=== PATIENT | female | born 1965 | race African-American/Black ===

== ENCOUNTER 2019-12-05 16:34 | Emergency (ER) | payer SELFPAY ==
[~2019-12-05] VITALS: Ht 170.2 cm; Wt 94.3 kg
[2019-12-05] MEDS ORDERED: ONDANSETRON HCL INJ 2MG/ML 2ML 2 MG/ML VIAL IV STA ×2 (17:15→19:16)
[2019-12-05] MEDS ORDERED: SODIUM CHLORIDE FLUSH 10 ML SYR INJ PRN (17:15)
[2019-12-05] MEDS ORDERED: KETOROLAC TROMETHAMINE 30 MG/ML VIAL IV STA (17:15)
--- NOTE | 2019-12-05 17:21 | NUR ---
went in room after md done to start iv and labs as ordered, explained to pt plan of care, pt then picks up her phone and states she needs "to make some calls," pt begins personal conversation, nurse excused herself and will be back to give pt privacy. updated md.
[2019-12-05] MEDS ORDERED: SODIUM CHLORIDE 0.9% 50ML 50 ML ONE (17:25)
[2019-12-05] MEDS ORDERED: IOPAMIDOL 370 MG/ML 200 ML INFUS..BTL INJ ONE (17:25)
--- OUTSIDE RECORDS SUMMARY | 2019-12-05 18:06 | XMS REPORT | Continuity of Care Document ---
Author Author [facility] Organization [facility] Address [facility] [address] Rivera [address] [place] [phone] Phone Unavailable Care Team Providers Care Folded Cloth Taper Name Role Phone Unavailable Unavailable Payers Payer Name Policy Type Policy Number Effective Date Expiration Date S ource Problems This patient has no known problems. Allergies, Adverse Reactions, Alerts Allergy Name Allergy Type Status Severity Reaction(s) Onset Date Inacti ve Date Treating Clinician Comments Source No Known Allergies DA Active U 2018-11-28 00:00:00 [facility] No Known Allergies DA Active U 2015-05-03 00:00:00 [facility] Medications This patient has no known medications. Procedures This patient has no known procedures. Results Test Description Test Time Test Comments Results Result Comments Source UTERUS W/WO TUBE/OVA. PROLAPSE 2018-11-28 15:16:00 DATE: 11/28/18 [facility] PAGE 1 RUN TIME: 1602 Specimen Inquiry RUN USER: INTERFACE PATIENT: JACOB MARTINEZ LOC: [place]OR #: [id number] AGE/SX: 53/F ROOM: [facility] RE11/24/18REG DR: Olegario Celis DO : 65 BED: A DIS: 11/27/18 STATUS: DIS IN TLOC: SPEC #: [id number] RECD: 11/27/18 STATUS: JOSSESanta CHARLIE #: [id number] LIZETT: 11/24/18- [facility] DR: Olegario Celis DO ENTERED: 11/27/18 SP TYPE: UTERUSPRO OTHR DR: Yuri Alston MD, Guillermo MDORDERED: LEVEL IV CODES: [id number] - UTERUS, NOS COPIES TO: Yuri Alston MD [address] [facility] [address] [place] [address] [email or web address] Olegario Celis DO [address] [facility] [address] [place] [address] Shawn Desouza MD [address] 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 (no atypia, increased mitotic rate or tumor cell necrosis identified) - leiomyomas uterine serosa - benign fibrous adhesions bilateral fallopian tubes - previously ligated fallopian tubes with benign CONTINUED ON NEXT PAGE RUN DATE: 11/28/18 [facility] PAGE 2 RUN TIME: 1602 Specimen Inquiry RUN USER: INTERFACE JOSE Gama #: [id number] PATIENT: JACOB MARTINEZ #[id number] (Continued) FINAL DIAGNOSIS (Continued) paratubal cysts right ovary - no significant pathologic alteration left ovary - benign fibroma, 4.8 cm CPT code(s): 79235 [facility] 11/28/18 GROSS DESCRIPTION ANATOMIC SOURCE OF TISSUE (per Requisition): Uterus, cervix, bilateral tubes and ovaries The specimen is received in formalin in a container labeled with the patient's name and designated "uterus, cervix, bilateral tubes and ovaries". The specimen consists of a 350 gm, 13.5 x 10.0 x 9.5 cm previously incised uterus with an attached cervix, previously ligated fimbriated fallopian tubes (right 5.5 cm in length and left 4.5 cm in length), and ovaries (right 4.0 cm and left 6.0 cm). The uterine serosa is de jesus-pink and nodular with a few possible adhesions. The 3.5 cm ectocervix displays a central 1 cm slit-like os. The endometrium is de jesus-red, hemorrhagic and slightly nodular with a thickness measuring up to 0.1 cm. The myometrium is extensively trabeculated with a wall thickness measuring up to 5.0 cm. There are multiple hemorrhagic cysts, 0.1 to 0.2 cm. Additionally, within the myometrium there are multiple well-circumscribed nodules, 0.5 to 5.5 cm. The cut surfaces are predominantly de jesus and whorled; however, the larger nodule d isplays focal areas of hemorrhage and multiple cyst-like spaces. The fallopian tubes are pink-purple and hyperemic. The lumens are slightly dilated. The ovarian stroma is de jesus, nodular, and firm with multiple corpora albicans. The left ovary displays a 4.8 cm well-circumscribed nodule. The cut surfaces are de jesus and whorled with areas of calcification. There are no areas of hemorrhage or necrosis. Section code: A1 - cervix, A2 - anterior endomyometrium, A3 - posterior endomyometrium, A4 - additional endometrium and possible serosal adhesions, A5 and A6 - pharmacy sales representative sections of large nodule, A7 - smaller nodules, A8 - pharmacy sales representative sections of right adnexa, A9 - pharmacy sales representative sections of left adnexa. amish 11/27/18 @ 1110 Signed Bree Canales MD 11/28/18 1516 END OF REPORT - CT ABD PELVIS W/CONT 2018-11-28 14:20:00 Katt ent Name: JACOB MARTINEZ Unit No: [id number] EXAMS: CPT CODE: [id number] CT ABD PELVIS W/CONT 29649 CT OF THE ABDOMEN AND PELVIS PERFORMED November 28, 2018 1410 hours . CLINICAL HISTORY: Status post hysterectomy and BSO 11/24/2018 . Presents now with postop fever COMPARISON: November 24, 2018 . TECHNIQUE: 5 mm helical images through the abdomen and pelvis with IV, oral and rectal contrast. One or more of the following dose techniques were utilized; automated exposure control, adjustment of the mA and/or kV according to patient size, and/or utilization of iterative reconstruction technique. DLP: 822 mGy-cm. DISCUSSION: Lung bases are clear. Great vessels and osseous structures are within normal limits. The liver, gallbladder, biliary tree, spleen, pancreas, bilateral adrenals, and bilateral kidneys are within normal limits. No adenopathy or free fluid is seen in the abdomen or pelvis. Visualized opacified portion of bowel is within normal limits. Appendix is not definitively seen. No secondary signs of appendicitis. The uterus has been surgically removed as have the ovaries and previously described pelvic mass. No focal fluid collection or abscess is seen. The visualized distal ureters and urinary bladder are within normal limits. IMPRESSION: 1. Normal postop CT of the abdomen and pelvis. No focal fluid collection or abscess is seen. at 1420 Reported and signed by: Kamilah Barton MD [facility] NAME: JACOB MARTINEZ Radiology Department PHYS: [email or web address] - Gregorio Woodward MD [address] : 1965 AGE: 53 SEX: F [place], [place] [address] LOC: TIMOTEO PHONE #: [phone] EXAM DATE: 11/28/2018 STATUS: REG ER FAX #: [phone] RAD NO: Page 1 Signed Report 1 Patient Name: JACOB MARTINEZ Unit No: [id number] EXAMS: CPT CODE: [id number] CT ABD PELVIS W/CONT 04528 <Continued> CC: Gregorio Woodward MD Technologist: Olga Humphrey, RT, CT CTDI: 11.65 DLP: 821.71 Trnscrbd D/ (2400) [facility]OB [facility] Radiology Department PHYS: Gregorio Luna MD [address] : 1965 AGE: 53 SEX: F [place] [address] LOC: NemoERS PHONE #: [phone] EXAM DATE: 11/28/2018 STATUS: REG ER FAX #: [phone] RAD NO: Page 2 Signed Report 1 Patient Name: JACOB MARTINEZ Unit No: [id number] EXAMS: CPT CODE: [id number] CT ABD PELVIS W/CONT 44802 <Continued> Orig Print D/T: S: 11/28/2018 (2742) [facility] NAME: MYESHA MARTINEZTORREY Radiology Department PHYS: Gregorio Luna MD [address] : 1965 AGE: 53 SEX: F [place] [address] LOC: Elyse.ERS PHONE #: [phone] EXAM DATE: 11/28/2018 STATUS: REG ER FAX #: [phone] RAD NO: Page 3 Signed Report 1 CBC W/AUTO DIFF 2018-11-28 13:14:00 Test Item WHITE BLOOD CELL (test code = WBC) 4.4 K/mm3 6.6-12.1 L Results verified by repeat analysis RED BLOOD CELL (test code = RBC) 4.41 M/mm3 3.45-5.01 N HEMOGLOBIN (test code = HGB) 13.2 g/dL 10.7-13.9 N HEMATOCRIT (test code = HCT) 39.6 % 32.1-42.1 N MEAN CELL VOLUME (test code = MCV) 90 fL 84.1-94.8 N MEAN CELL HGB (test code = MCH) 29.9 pg 27-35 N MEAN CELL HGB CONCETRATION (test code = MCHC) 33.3 gm/dL 32.2-34. 1 N RED CELL DISTRIBUTION WIDTH (test code = RDW) 12.5 % 12.4-16. 5 N PLATELET COUNT (test code = PLT) 289 K/mm3 133-385 N IMMATURE PLATELET FRACTION (test code = IPF) 0.0 % 0.0-10.8 N MEAN PLATELET VOLUME (test code = MPV) 11.4 fl 9.1-12.7 N NEUTROPHIL % (test code = NT%) 54.1 % 56.5-79.4 L LYMPHOCYTE % (test code = LY%) 33.9 % 14.3-34.3 N MONOCYTE % (test code = MO%) 9.8 % 5.1-10.4 N EOSINOPHIL % (test code = EO%) 1.1 % 0.1-3.0 N BASOPHIL % (test code = BA%) 0.9 % 0.1-1.0 N NEUTROPHIL # (test code = NT#) 2.4 K/mm3 LYMPHOCYTE # (test code = LY#) 1.5 K/mm3 MONOCYTE # (test code = MO#) 0.4 K/mm3 EOSINOPHIL # (test code = EO#) 0.05 K/mm3 BASOPHIL # (test code = BA#) 0.0 K/mm3 RBC MORPHOLOGY REQUIRED (test code = RBCM) NORMAL NORMAL PLATELET MORPHOLOGY REQUIRED (test code = PLTMR) NORMAL JOSE L CHEMISTRY 7 [id number] 13:12:00* Test Item Value Reference Range Interpretation Comments SODIUM (test code = NA) 141 mEq/L 135-145 N POTASSIUM (test code = K) 3.4 mEq/L 3.5-5.0 L CHLORIDE (test code = CL) 105 mEq/L 100-115 N CARBON DIOXIDE (test code = CO2) 27 mEq/L 22-31 N ANION GAP (test code = GAP) 12.00 10-20 N GLUCOSE (test code = GLU) 137 mg/dL 65-110 H BLOOD UREA NITROGEN (test code = BUN) 8 mg/dL 7-18 N GLOMERULAR FILTRATION RATE (test code = GFR) 65 ml/min >60 N CREATININE (test code = CREAT) 1.0 mg/dL 0.5-1.0 N CALCIUM (test code = CA) 8.4 mg/dL 8.4-10.2 N UA RFLX MICR CULT IF [id number] 13:02:00* Test Item Value Reference Range Interpretation Comments UA COLOR (test code = COLU) YELLOW YELLOW UA APPEARANCE (test code = APPU) Slightly-Cloudy CLEAR UA GLUCOSE DIPSTICK (test code = DGLUU) NEGATIVE NEG UA BILIRUBIN DIPSTICK (test code = BILU) NEGATIVE NEG UA KETONE DIPSTICK (test code = KETU) 1+ NEG A UA SPECIFIC GRAVITY (test code = SGU) 1.024 1.001-1.035 N UA BLOOD DIPSTICK (test code = [place]) 1+ NEG A UA PH DIPSTICK (test code = LARS) 6.0 5-9 UA PROTEIN DIPSTICK (test code = PROU) NEGATIVE NEG UA UROBILINIOGEN DIPSTICK (test code = URO) 2.0 mg/dL NEG UA NITRITE DIPSTICK (test code = LEONARDA) NEG NEG UA LEUKOCYTE ESTERASE DIPSTICK (test code = LEUU) 2+ NEG A UA WBC (test code = WBCU) 31-40 #/hpf NONE SEEN A UA RBC (test code = RBCU) 3-5 #/hpf NONE SEEN A UA EPITHELIAL CELLS (test code = EPIU) FEW #/HPF RARE-FEW UA MUCUS (test code = MUCU) RARE NONE SEEN Indication for culture: Suprapubic PainCHEMISTRY 7 [id number] 16:16:00* Test Item Value Reference Range Interpretation Comments SODIUM (test code = NA) 140 mEq/L 135-145 N POTASSIUM (test code = K) 3.8 mEq/L 3.5-5.0 N CHLORIDE (test code = CL) 105 mEq/L 100-115 N CARBON DIOXIDE (test code = CO2) 29 mEq/L 22-31 N ANION GAP (test code = GAP) 10.20 10-20 N GLUCOSE (test code = GLU) 107 mg/dL 65-110 N BLOOD UREA NITROGEN (test code = BUN) 6 mg/dL 7-18 L GLOMERULAR FILTRATION RATE (test code = GFR) 65 ml/min >60 N CREATININE (test code = CREAT) 1.0 mg/dL 0.5-1.0 N CALCIUM (test code = CA) 8.3 mg/dL 8.4-10.2 L CBC W/AUTO [id number] 15:40:00* Test Item Value Reference Range Interpretation Comments WHITE BLOOD CELL (test code = WBC) 7.6 K/mm3 6.6-12.1 RED BLOOD CELL (test code = RBC) 4.16 M/mm3 3.45-5.01 N HEMOGLOBIN (test code = HGB) 12.4 g/dL 10.7-13.9 N HEMATOCRIT (test code = HCT) 37.5 % 32.1-42.1 N MEAN CELL VOLUME (test code = MCV) 90 fL 84.1-94.8 N MEAN CELL HGB (test code = MCH) 29.8 pg 27-35 N MEAN CELL HGB CONCETRATION (test code = MCHC) 33.1 gm/dL 32.2-34. 1 N RED CELL DISTRIBUTION WIDTH (test code = RDW) 12.5 % 12.4-16. 5 N PLATELET COUNT (test code = PLT) 272 K/mm3 133-385 N IMMATURE PLATELET FRACTION (test code = IPF) 0.0 % 0.0-10.8 N MEAN PLATELET VOLUME (test code = MPV) 11.5 fl 9.1-12.7 N NEUTROPHIL % (test code = NT%) 71.6 % 56.5-79.4 N LYMPHOCYTE % (test code = LY%) 19.3 % 14.3-34.3 N MONOCYTE % (test code = MO%) 8.9 % 5.1-10.4 N EOSINOPHIL % (test code = EO%) 0.0 % 0.1-3.0 L BASOPHIL % (test code = BA%) 0.1 % 0.1-1.0 N NEUTROPHIL # (test code = NT#) 5.4 K/mm3 LYMPHOCYTE # (test code = LY#) 1.5 K/mm3 MONOCYTE # (test code = MO#) 0.7 K/mm3 EOSINOPHIL # (test code = EO#) 0 K/mm3 BASOPHIL # (test code = BA#) 0.0 K/mm3 RBC MORPHOLOGY REQUIRED (test code = RBCM) NORMAL NORMAL PLATELET MORPHOLOGY REQUIRED (test code = PLTMR) NORMAL JOSE L HGB [id number] 05:46:00* Test Item Value Reference Range Interpretation Comments HEMOGLOBIN (test code = HGB) 13.0 g/dL 10.7-13.9 N HEMATOCRIT (test code = HCT) 39.9 % 32.1-42.1 N - US TRANSVAGINAL [id number] 14:28:00 Patient Name: JACOB MARTINEZ Unit No: [id number] Report Has Been Amended EXAMS: CPT CODE: [id number] US TRANSVAGINAL W/PELVIS 92376 Addendum - 11/24/2018 SIGNED 11/24/2018 ADDENDUM: [id number] US/TRANPL Addendum: Additional ultrasound imaging was performed 11/24/2018 at [address] for assessment of the ovaries. In the left adnexa just superior to the uterus is an inhomogeneous mass measuring approximately 3.7 x 6.0 x 3.7 cm. Echogenicity is similar in appearance to the uterine myometrium. Minimal flow is present. This does appear separate from the uterus. This corresponds to the lesion seen on CT. Differential considerations include ovarian (hemorrhagic cyst, neoplasm or torsion) versus less likely pedunculated degenerating fibroid. The right ovary was not visualized due to bowel gas and patient discomfort. These findings were discussed with Dr. Desouza approximately 2:00 PM 11/24/2018 at 1422 Reported and signed by: Kamilah Barton MD Transcribed: 12/2018 (6499) t.SDR.NMG Report TRANSABDOMINAL AND TRANSVAGINAL PELVIC UL TRASOUND INDICATION: Heavy vaginal bleeding. TECHNIQUE: Transabdominal and transvaginal pelvic ultrasound was performed with mariee scale and Doppler im ages. COMPARISONS: None FINDINGS: TRANSABDOMINAL PELVIC ULTRASOUND: The uterus measures 11.5 x 9.6 x 7.8 cm. The endometrium is not well visua lized. There is a 7.8 x 6.4 x 7.1 cm posterior uterine body transmural uter ine fibroid. Neither ovary is visualized due to shadowing from bowel. Th e urinary bladder appears normal as visualized. There is no intra-abdominal free fluid. The [facility] NAME: MYESHA MARTINEZ Radiology Department PHYS: Abhay Arteaga [address] : 1965 AGE: 53 SE X: F [place], [place] [address] LOC: F.2644 A PHONE #: [phone] EXAM DATE: 11/23/2018 STATUS: ADM IN FAX #: [phone] RAD NO: Page 1 Signed Report (CONTINUED) Patient Name: JACOB MARTINEZ Unit No: [id number] Report Has Been Am ended EXAMS: CPT CODE: [id number] US TRANSVAGINAL W/PELVIS 64904 < Continued> Transvaginal pelvic ultrasound was performed in order to better visualize the pelvic structures. TRANSVAGINAL PELVIC ULTRASOUND: The uterus measures 13.4 x 7.5 x 7.5 cm. The endometrial stripe measures 1.1 cm thick. There is a small amount of complex fluid in the endometrial canal. There is a 2.6 x 2.5 x 2.8 cm submucosal right uterine body fibroid. There is a 6.7 x 6.6 x 7.6 cm transmural posterior uterine body fibroid. The ovaries were not visualized due to shadowing from bowel. IMPRESSION: 1. The endometrial stripe measures 1.1 cm thick. There is a small amount of complex fluid in the endometrial cavity. 2. There is a 2.6 x 2.5 x 2.8 cm submucosal right uterine body fibroid. 3. There is a 6.7 x 6.6 x 7.6 cm transmural posterior uterine body fibroid. 4. The ovaries were not visualized due to shadowing from bowel. at 2214 Reported and signed by: Frankie Poole DO CC: Abhay William MD Technologist: Danielle Payne RDMS Probe: [id number] Trnscrbd D/ (2214) [id number] Orig Print D/T: S: 11/23/2018 (2217) [facility] NAME: JACOB MARTINEZ Radiology Department PHYS: Abhay Skinner : 1965 AGE: 53 SEX: F [place], [place] [address] LOC: F.2644 A PHONE #: [phone] EXAM DATE: 11/23/2018 STATUS: ADM IN FAX #: [phone] RAD NO: Page 2 Signed Report Patient Name: JACOB MARTINEZ Unit No: [id number] Report Has Been Amended EXAMS: CPT CODE: [id number] US TRANSVAGINAL W/PELVIS 26672 <Continued> [facility] NAME: JACOB MARTINEZ Radiology Department PHYS: Abhay Skinner [address] : 1965 AGE: 53 SEX: F [place], [place] [address] LOC: F.2644 A PHONE #: [phone] EXAM DATE: 11/23/2018 STATUS: ADM IN FAX #: [phone] RAD NO: Page 3 Signed Report - US PELVIS [id number] 14:28:00 Patient Name: JACOB MARTINEZ Unit No: [id number] Report Has Been Amended EXAMS: CPT CODE: [id number] US PELVIS COMPLETE 13560 Addendum - 11/24/2018 SIGNED 11/24/2018 ADDENDUM: [id number] US/USPELNOBC Addendum: Additional ultrasound imaging was performed 11/24/2018 at [address] for assessment of the ovaries. In the left adnexa just superior to the uterus is an inhomogeneous mass measuring approximately 3.7 x 6.0 x 3.7 cm. Echogenicity is similar in appearance to the uterine myometrium. Minimal flow is present. This does appear separate from the uterus. This corresponds to the lesion seen on CT. Differential considerations include ovarian (hemorrhagic cy st, neoplasm or torsion) versus less likely pedunculated degenerating fibroid. The right ovary was not visualized due to bowel gas and patient discomfort. These findings were discussed with Dr. Desouza approximately 2:00 PM 11/24/2018 at 1423 Reported and signed by: Kamilah Barton MD Transcribed: 11/24/2018 (7617) t.SDR.NMG Report TRANSABDOMINAL AND TRANSVAGINAL PELVIC ULTRASOUND INDICATION: Heavy vaginal bleeding. TECHNIQUE: Transabdomin al and transvaginal pelvic ultrasound was performed with mariee scale and Doppler images. COMPARISONS: None FINDINGS: TRANSABDOMINAL PELVIC ULTRASOUN D: The uterus measures 11.5 x 9.6 x 7.8 cm. The endometrium is not well vi sualized. There is a 7.8 x 6.4 x 7.1 cm posterior uterine body transmural u terine fibroid. Neither ovary is visualized due to shadowing from bowel. The urinary bladder appears normal as visualized. There is no intra-abdomin al free fluid. [facility] NAME: ANNA MARTINEZ Radiology Department PHYS: Abhay Alan [address] : 1965 AGE: 53 SEX: F [place], [place] [address] LOC: F.2644 A PHONE #: [phone] EXAM DATE: 11/23/2018 STATUS: ADM IN FAX #: [phone] RAD NO: Page 1 Signed Report (CONTINUED) Patient Name: JACOB MARTINEZ Unit No: [id number] Report Has Been Amended EXAMS: CPT CODE: [id number] US PELVIS COMPLETE 03608 < Continued> Transvaginal pelvic ultrasound was performed in order to better visualize the pelvic structures. TRANSVAGINAL PELVIC ULTRASOUND: The uterus measures 13.4 x 7.5 x 7.5 cm. The endometrial stripe measures 1.1 cm thick. There is a small amount of complex fluid in the endometrial canal. There is a 2.6 x 2.5 x 2.8 cm submucosal right uterine body fibroid. There is a 6.7 x 6.6 x 7.6 cm transmural posterior uterine body fibroid. The ovaries were not visualized due to shadowing from bowel. IMPRESSION: 1. The endometrial stripe measures 1.1 cm thick. There is a small amount of complex fluid in the endometrial cavity. 2. There is a 2.6 x 2.5 x 2.8 cm submucosal right uterine body fibroid. 3. There is a 6.7 x 6.6 x 7.6 cm transmural posterior uterine body fibroid. 4. The ovaries were not visualized due to shadowing from bowel. at 2214 Reported and signed by: Frankie Poole DO CC: Abhay William MD Technologist: Danielle Payne RDMS Probe: Trnscrbd D/ (6044) t.TERRIER.JB33 Orig Print D/T: S: 11/23/2018 (6377) [facility] NAME: JACOB MARTINEZ Radiology Department PHYS: Abhay Skinner [address] : 1965 AGE: 53 SEX: F [place] [address] LOC: F.2644 A PHONE #: [phone] EXAM DATE: 11/23/2018 STATUS: ADM IN FAX #: [phone] RAD NO: Page 2 Signed Report Patient Name: JACOB MARTINEZ Unit No: [id number] Report Has Been Amended EXAMS: CPT CODE: [id number] US PELVIS COMPLETE 80832 <Continued> The [facility] [place] [facility] NAME: ANNA MARTINEZMIGUELTORREY Radiology Department PHYS: Abhay Skinner [address] : 1965 AGE: 53 SEX: F [place], [place] [address] LOC: F.2644 A PHONE #: [phone] EXAM DATE: 11/23/2018 STATUS: ADM IN FAX #: [phone] RAD NO: Page 3 Signed Report - CT ABD PELVIS [id number] 14:22:00 Patient Name: JACOB MARTINEZ Unit No: [id number] EXAMS: CPT CODE: [id number] CT ABD PELVIS W/CONT 70600 CT OF THE ABDOMEN AND PELVIS PERFORMED November 24, 2018 1150 hours . CLINICAL HISTORY: Postmenopa usal vaginal bleeding with severe abdominal and pelvic pain . COMPARISON: Ultrasound obtained same date TECHNIQUE: 5 mm helical images through the ab domen and pelvis with IV, oral and rectal contrast. One or more of the foll owing dose techniques were utilized; automated exposure control, adjustment of the mA and/or kV according to patient size, and/or utilization of iterative rec onstruction technique. DLP: 610 mGy-cm. DISCUSSION: Lung bases are clear. Great vessels and osseous structures are within normal limits. The liver, gallb ladder, biliary tree, spleen, pancreas, bilateral adrenals, and bilateral kidne ys are within normal limits. No adenopathy or free fluid is seen in the ab domen or pelvis. Visualized opacified portion of bowel is within normal limits. The appendix is not visualized. No secondary signs of appendicitis are presen t. Enlarged inhomogeneous uterus, compatible with uterine fibroids. Ther e is a 4.0 x 5.1 x 4.8 cm low-density mass seen in the left adnexa, suspicious for enlarged or abnormal left ovary (hemorrhagic cyst, neoplasm or torsion are all in the differential). A pedunculated fibroid is also a diagnostic considera tion. The right ovary contains a probable 18 mm cyst. 2 right ovarian veins are noted. These appear patent. The left ovarian vein appears unremarkable. The visualized distal ureters and urinary bladder are within normal limits. D iscussed with Dr. Desouza approximately 2:00 PM 11/24/2018 IMPRESSION: 1. 4.0 x 5.1 x 4.8 cm low-density mass seen in the left adnexa suspicious f or enlarged or abnormal ovary, as detailed above. [facility] NAME: JACOB MARTINEZ Radiology Department PHYS: Shawn Quintana MD [address] : 1965 AGE: 53 SEX: F [place], [place] [address] LOC: F.2644 A PHONE #: [phone] EXAM D ATE: 11/24/2018 STATUS: ADM IN FAX #: [phone] RAD NO: Page 1 Signed Report 1 Patient Name: JACOB MARTINEZ Unit No: [id number] EX AMS: CPT CODE: [id number] CT ABD PELVIS W/CONT 00682 <Continued> Pedunculated fibroid is also in the differential. Please see ultrasound dictated separately. 2. Uterine fibroids. 3. Duplicated right ovarian vein at 1422 Reported and signed by: Kamilah Barton MD CC: Olegario Celis DO Technol ogist: Olga Humphrey, RT, CT CTDI: 19.42 DLP : 610.60 Trnscrbd D/ (6213) Ole [facility] [place] [facility] NAME: JACOB MARTINEZ Rad iology Department PHYS: Shawn Quintana MD [address] : 1965 AGE: 53 SEX: F [place] [address] LOC: F.2644 A PHONE #: EXAM DATE: 11/24/2018 STATUS: ADM IN FAX #: [phone] RAD NO: Page 2 Signed Report 1 Patient Name: JACOB MARTINEZ Unit No: [id number] EXAMS: CPT C ODE: [id number] CT ABD PELVIS W/CONT 13055 <Continued> Orig Print D/T: S: 11/24/2018 (4476) [facility] NAME: JACOB MARTINEZ Radiology Department PHYS: Shawn Quintana MD [address] : 1965 AGE: 53 SEX: F [place] [address] LOC: F.2644 A PHONE #: [phone] EXAM DATE: 11/24/2018 STATUS: ADM IN FAX #: [phone] RAD NO: Page 3 Signed Report 1 CBC W/AUTO DIFF 2018-11-24 11:30:00* Test Item Value Reference Range Interpretation Comments WHITE BLOOD CELL (test code = WBC) 3.7 K/mm3 6.6-12.1 L RED BLOOD CELL (test code = RBC) 4.23 M/mm3 3.45-5.01 N HEMOGLOBIN (test code = HGB) 12.4 g/dL 10.7-13.9 N HEMATOCRIT (test code = HCT) 39.1 % 32.1-42.1 N MEAN CELL VOLUME (test code = MCV) 92 fL 84.1-94.8 N MEAN CELL HGB (test code = MCH) 29.3 pg 27-35 N MEAN CELL HGB CONCETRATION (test code = MCHC) 31.7 gm/dL 32.2-34. 1 L RED CELL DISTRIBUTION WIDTH (test code = RDW) 12.6 % 12.4-16. 5 N PLATELET COUNT (test code = PLT) 222 K/mm3 133-385 N IMMATURE PLATELET FRACTION (test code = IPF) 0.0 % 0.0-10.8 N MEAN PLATELET VOLUME (test code = MPV) 11.5 fl 9.1-12.7 N NEUTROPHIL % (test code = NT%) 42.3 % 56.5-79.4 L LYMPHOCYTE % (test code = LY%) 46.3 % 14.3-34.3 H MONOCYTE % (test code = MO%) 9.5 % 5.1-10.4 N EOSINOPHIL % (test code = EO%) 1.1 % 0.1-3.0 N BASOPHIL % (test code = BA%) 0.5 % 0.1-1.0 N NEUTROPHIL # (test code = NT#) 1.6 K/mm3 LYMPHOCYTE # (test code = LY#) 1.7 K/mm3 MONOCYTE # (test code = MO#) 0.4 K/mm3 EOSINOPHIL # (test code = EO#) 0.04 K/mm3 BASOPHIL # (test code = BA#) 0.0 K/mm3 RBC MORPHOLOGY REQUIRED (test code = RBCM) NORMAL NORMAL PLATELET MORPHOLOGY REQUIRED (test code = PLTMR) NORMAL JOSE L NO SAMPLE RECEIVE IT IN THE LAB. RN/SEND 1 RED /1 GREEN TOP.RN/IS AWARECHEMISTRY 7 [id number] 11:09:00* Test Item Value Reference Range Interpretation Comments SODIUM (test code = NA) 138 mEq/L 135-145 N POTASSIUM (test code = K) 3.8 mEq/L 3.5-5.0 N CHLORIDE (test code = CL) 103 mEq/L 100-115 N CARBON DIOXIDE (test code = CO2) 27 mEq/L 22-31 N ANION GAP (test code = GAP) 11.50 10-20 N GLUCOSE (test code = GLU) 99 mg/dL 65-110 N BLOOD UREA NITROGEN (test code = BUN) 9 mg/dL 7-18 N GLOMERULAR FILTRATION RATE (test code = GFR) 73 ml/min >60 N CREATININE (test code = CREAT) 0.9 mg/dL 0.5-1.0 N CALCIUM (test code = CA) 7.8 mg/dL 8.4-10.2 L LIVER [id number] 11:09:00* Test Item Value Reference Range Interpretation Comments TOTAL PROTEIN (test code = PROT) 6.3 gm/dL 6.3-8.2 N ALBUMIN (test code = ALB) 3.1 gm/dL 3.4-4.8 L BILIRUBIN TOTAL (test code = BILT) 0.5 mg/dL 0.2-1.0 BILIRUBIN DIRECT (test code = BILD) 0.1 mg/dL <0.2 N SGOT/AST (test code = AST) 14 units/L 15-37 L SGPT/ALT (test code = ALT) 21 units/L 12-78 N ALKALINE PHOSPHATASE TOTAL (test code = ALKP) 51 units/L 46-116 N [id number] 11:09:00* Test Item Value Reference Range Interpretation Comments AMYLASE (test code = AYANNA) 64 units/L 30-110 N [id number] 11:09:00* Test Item Value Reference Range Interpretation Comments LIPASE (test code = LIP) 69 units/L 73-393 L HGB [id number] 05:47:00* Test Item Value Reference Range Interpretation Comments HEMOGLOBIN (test code = HGB) 12.2 g/dL 10.7-13.9 N HEMATOCRIT (test code = HCT) 37.6 % 32.1-42.1 N - US TRANSVAGINAL [id number] 22:14:00 Patient Name: JACOB MARTINEZ Unit No: [id number] EXAMS: CPT CODE: [id number] US TRANSVAGINAL W/PELVIS 18619 TRANSABDOMINAL AND TRANSVAGINAL PELVIC ULTRASOUND INDICATION: Heavy vaginal bleeding. TECHNIQUE: Transabdominal and transvaginal pelvic ultrasound was performed with mariee scale and Doppler images. COMPARISONS: None FINDINGS: TRANSABDOMINAL PELVIC ULTRASOUND: The uterus measures 11.5 x 9.6 x 7.8 cm. The endometrium is not well visualized. There is a 7.8 x 6.4 x 7.1 cm posterior uterine body transmural uterine fibroid. Neither ovary is visualized due to shadowing from bowel. The urinary bladder appears normal as visualized. There is n o intra-abdominal free fluid. Transvaginal pelvic ultrasound was performed i n order to better visualize the pelvic structures. TRANSVAGINAL PELVIC UL TRASOUND: The uterus measures 13.4 x 7.5 x 7.5 cm. The endometrial strip e measures 1.1 cm thick. There is a small amount of complex fluid in the endom etrial canal. There is a 2.6 x 2.5 x 2.8 cm submucosal right uterine body fi broid. There is a 6.7 x 6.6 x 7.6 cm transmural posterior uterine body fibr oid. The ovaries were not visualized due to shadowing from bowel. IMPR ESSION: 1. The endometrial stripe measures 1.1 cm thick. There is a sm all amount of complex fluid in the endometrial cavity. 2. There is a 2.6 x 2.5 x 2.8 cm submucosal right uterine body fibroid. 3. There is a 6.7 x 6.6 x 7.6 cm transmural posterior uterine body fibroid. 4. The ovaries were not visualized due to shadowing from bowel. The [facility] NAME: JACOB MARTINEZ Radiology Department PHYS: Abhay Skinner [address] : 1965 AGE: 53 SEX: F [place], [place] [address] LOC: [facility] PHONE #: [phone] EXAM DATE: 11/23/2018 STATUS: REG ER FAX #: [phone] RAD NO: Page 1 Signed Report (CONTINUED) Patient Name: JACOB MARTINEZ Unit No: [id number] EXAMS: CPT CODE: [id number] US TRANSVAGINAL W/PELVIS 80515 <Continued> at 2214 Reported and signed by: Frankie Poole DO CC: Abhay William MD Technologist: Danielle Payne [facility] [place] Probe: [id number] Trnscrbd D/ (2214) [id number] Orig Print D/T: S: 1 (1732) [facility] NAME[facility] PHYS: Abhay Archibald [address] : 1965 AGE: 53 SEX: F [place] [address] LOC: [facility]OTE[facility] PHONE #: [phone] EXAM DATE: 11/23/2018 STATUS: REG ER FAX #: [phone] RAD NO: Page 2 Signed Report Patient Name: JACOB MARTINEZ Unit No: [id number] EXAMS: CPT CODE: [id number] US TRANSVAGINAL W/PELVIS 30671 <Continued> The [facility] [place] [facility] NAME: JACOB MARTINEZ Radiology Department PHYS: Abhay Skinner [address] : 1965 AGE: 53 SEX: F [place] [address] LOC: [facility] PHONE #: [phone] EXAM DATE: 11/23/2018 STATUS: REG ER FAX #: [phone] RAD NO: Page 3 Signed Report - US PELVIS [id number] 22:14:00 Patient Name: JACOB MARTINEZ Unit No: [id number] EXAMS: CPT CODE: [id number] US PEL VIS COMPLETE 39581 TRANSABDOMINAL AND NAVARRO SVAGINAL PELVIC ULTRASOUND INDICATION: Heavy vaginal bleeding. TECHNIQU E: Transabdominal and transvaginal pelvic ultrasound was performed with mariee sc mono and Doppler images. COMPARISONS: None FINDINGS: TRANSABDOMINAL P ELVIC ULTRASOUND: The uterus measures 11.5 x 9.6 x 7.8 cm. The endometrium is not well visualized. There is a 7.8 x 6.4 x 7.1 cm posterior uterine bod y transmural uterine fibroid. Neither ovary is visualized due to shadowing from bowel. The urinary bladder appears normal as visualized. There is n o intra-abdominal free fluid. Transvaginal pelvic ultrasound was performed i n order to better visualize the pelvic structures. TRANSVAGINAL PELVIC UL TRASOUND: The uterus measures 13.4 x 7.5 x 7.5 cm. The endometrial strip e measures 1.1 cm thick. There is a small amount of complex fluid in the endom etrial canal. There is a 2.6 x 2.5 x 2.8 cm submucosal right uterine body fi broid. There is a 6.7 x 6.6 x 7.6 cm transmural posterior uterine body fibr oid. The ovaries were not visualized due to shadowing from bowel. IMPR ESSION: 1. The endometrial stripe measures 1.1 cm thick. There is a sm all amount of complex fluid in the endometrial cavity. 2. There is a 2.6 x 2.5 x 2.8 cm submucosal right uterine body fibroid. 3. There is a 6.7 x 6.6 x 7.6 cm transmural posterior uterine body fibroid. 4. The ovaries were not visualized due to shadowing from bowel. The [facility] NAME: MCKENZIECAMILLEJACOB Radiology Department PHYS: Abhay Skinner [address] : 1965 AGE: 53 SEX: F [place], [place] [address] LOC: F.ERS PHONE #: [phone] EXAM DATE: 11/23/2018 STATUS: REG ER FAX #: [phone] RAD NO: Page 1 Signed Report (CONTINUED) Patient Name: JACOB MARTINEZ Unit No: [id number] EXAMS: CPT CODE: [id number] US PELVIS COMPLETE 42741 <Continued> at 2214 Reported and signed by: Frankie Poole DO CC: Abhay William MD Technologist: Danielle Payne RDMS Probe: Trnscrbd D/ (2214) [id number] Orig Print D/T: S: 1 (2217) The [facility] [place] [facility] NAME: CLARITA MARTINEZ Radiology Department PHYS: Abhay Archibald [address] : 1965 AGE: 53 SEX: F [place] [address] LOC: [facility] PHONE #: [phone] EXAM DATE: 11/23/2018 STATUS: REG ER FAX #: [phone] RAD NO: Page 2 Signed Report Patient Name: JACOB MARTINEZ Unit No: [id number] EXAMS: CPT CODE: [id number] US PELVIS COMPLETE [address]309 <Continued> The [facility] [place] [facility] NAME: JACOB MARTINEZ Radiology Department PHYS: Abhay Skinner [address] : 1965 AGE: 53 SEX: F [place] [address] LOC: [facility] PHONE #: [phone] EXAM DATE: 11/23/2018 STATUS: REG ER FAX #: [phone] RAD NO: Page 3 Signed Report COMPREHENSIVE METABOLIC [id number] 19:42:00* Test Item Value Reference Range Interpretation Comments SODIUM (test code = NA) 141 mEq/L 135-145 N POTASSIUM (test code = K) 4.1 mEq/L 3.5-5.0 N CHLORIDE (test code = CL) 107 mEq/L 100-115 N CARBON DIOXIDE (test code = CO2) 26 mEq/L 22-31 N ANION GAP (test code = GAP) 12.60 10-20 N GLUCOSE (test code = GLU) 98 mg/dL 65-110 N BLOOD UREA NITROGEN (test code = BUN) 13 mg/dL 7-18 N GLOMERULAR FILTRATION RATE (test code = GFR) 65 ml/min >60 N CREATININE (test code = CREAT) 1.0 mg/dL 0.5-1.0 N TOTAL PROTEIN (test code = PROT) 6.8 gm/dL 6.3-8.2 N ALBUMIN (test code = ALB) 3.4 gm/dL 3.4-4.8 N CALCIUM (test code = CA) 8.5 mg/dL 8.4-10.2 N BILIRUBIN TOTAL (test code = BILT) 0.3 mg/dL 0.2-1.0 N SGOT/AST (test code = AST) 20 units/L 15-37 N SGPT/ALT (test code = ALT) 21 units/L 12-78 N ALKALINE PHOSPHATASE TOTAL (test code = ALKP) 65 units/L 46-116 N UA RFLX MICR CULT IF [id number] 19:21:00* Test Item Value Reference Range Interpretation Comments UA COLOR (test code = COLU) YELLOW YELLOW UA APPEARANCE (test code = APPU) CLEAR CLEAR UA GLUCOSE DIPSTICK (test code = DGLUU) NEGATIVE NEG UA BILIRUBIN DIPSTICK (test code = BILU) NEGATIVE NEG UA KETONE DIPSTICK (test code = KETU) NEGATIVE NEG UA SPECIFIC GRAVITY (test code = SGU) 1.018 1.001-1.035 N UA BLOOD DIPSTICK (test code = [place]) 3+ NEG A UA PH DIPSTICK (test code = LARS) 6.0 5-9 UA PROTEIN DIPSTICK (test code = PROU) NEGATIVE NEG UA UROBILINIOGEN DIPSTICK (test code = URO) NEGATIVE mg/dL NEG UA NITRITE DIPSTICK (test code = LEONARDA) NEG NEG UA LEUKOCYTE ESTERASE DIPSTICK (test code = LEUU) NEG NEG UA WBC (test code = WBCU) 0-2 #/hpf NONE SEEN UA RBC (test code = RBCU) TOO NUMEROUS TO CNT #/hpf NONE SEEN A UA EPITHELIAL CELLS (test code = EPIU) RARE #/HPF RARE-FEW UA BACTERIA (test code = BACU) NEGATIVE /HPF RARE-FEW UA MUCUS (test code = MUCU) RARE NONE SEEN Indication for culture: Suprapubic PainCBC W/AUTO [id number] 19:16:00* Test Item Value Reference Range Interpretation Comments WHITE BLOOD CELL (test code = WBC) 5.1 K/mm3 6.6-12.1 L RED BLOOD CELL (test code = RBC) 4.54 M/mm3 3.45-5.01 N HEMOGLOBIN (test code = HGB) 13.3 g/dL 10.7-13.9 N HEMATOCRIT (test code = HCT) 40.7 % 32.1-42.1 N MEAN CELL VOLUME (test code = MCV) 90 fL 84.1-94.8 N MEAN CELL HGB (test code = MCH) 29.3 pg 27-35 N MEAN CELL HGB CONCETRATION (test code = MCHC) 32.7 gm/dL 32.2-34. 1 N RED CELL DISTRIBUTION WIDTH (test code = RDW) 12.4 % 12.4-16. 5 N PLATELET COUNT (test code = PLT) 275 K/mm3 133-385 N IMMATURE PLATELET FRACTION (test code = IPF) 0.0 % 0.0-10.8 N MEAN PLATELET VOLUME (test code = MPV) 11.6 fl 9.1-12.7 N NEUTROPHIL % (test code = NT%) 40.0 % 56.5-79.4 L LYMPHOCYTE % (test code = LY%) 48.5 % 14.3-34.3 H MONOCYTE % (test code = MO%) 8.3 % 5.1-10.4 N EOSINOPHIL % (test code = EO%) 2.2 % 0.1-3.0 N BASOPHIL % (test code = BA%) 0.8 % 0.1-1.0 N NEUTROPHIL # (test code = NT#) 2.0 K/mm3 LYMPHOCYTE # (test code = LY#) 2.5 K/mm3 MONOCYTE # (test code = MO#) 0.4 K/mm3 EOSINOPHIL # (test code = EO#) 0.11 K/mm3 BASOPHIL # (test code = BA#) 0.0 K/mm3 RBC MORPHOLOGY REQUIRED (test code = RBCM) NORMAL NORMAL PLATELET MORPHOLOGY REQUIRED (test code = PLTMR) NORMAL JOSE L
--- NOTE | 2019-12-05 18:27 | Emergency Department Note ---
History of Present Illnes History of Present Illness Chief Complaint: bilateral lbp History of Present Illness This is a 54 year old female. was doing well prior to this. then rgt knee pain, bilateral thigh pain, bilateral lbp radiating to abdomen Historian: Patient Arrival Mode: Car History limited by: condition of the patient (normal) Licensing Coordinator Required: No Onset (how long ago): day(s) (5) Location: see above Quality: sharp Radiation: Reports abdomen Severity: severe Onset quality: gradual Duration (how long): day(s) (5) Timing of current episode: constant Progression: worsening Chronicity: new Context: Denies recent illness, Denies recent surgery, Denies recent immobilization, Denies recent travel, Denies trauma/injury, Denies new medications, Denies hx of DVT/PE, Denies non-compliance w/ medications Relieving factors: rest Exacerbating factors: movement Associated symptoms: Reports denies other symptoms Treatments prior to arrival: none Past Medical/Family History Physician Review I have reviewed the patient's past medical and family history. Any updates have been documented here. Past Medical History Recent Fever: No Clinical Suspicion of Infectio: No New/Unexplained Change in Ment: No Past Medical History: Hypertension Past Surgical History: Hysterectomy, Social History Smoking Cessation: Never Smoker Counseling Performed: No Alcohol Use: None Any Illegal Drug Use: No Other Any Pre-Existing Lines (PICC,: No Review of Systems Review of Systems Constitutional: Reports no symptoms EENTM: Reports no symptoms Cardiovascular: Reports no symptoms Respiratory: Reports no symptoms Gastrointestinal: Reports as per HPI Genitourinary: Reports no symptoms Musculoskeletal: Reports as per HPI Integumentary: Reports no symptoms Neurological: Reports no symptoms Psychological: Reports no symptoms Endocrine: Reports no symptoms Hematological/Lymphatic: Reports no symptoms Review of other systems: All other systems negative Physical Exam Related Data Allergies: Uncoded Allergies: UNK ANTIBIOTIC (Allergy, Unknown, 12/05/19) Triage Vital Signs Vital Signs Date Time Temp Pulse Resp B/P (MAP) Pulse Ox O2 Delivery O2 Flow Rate FiO2 12/05/19 16:38 98.4 63 16 176/96 100 Room Air Vital signs reviewed: Yes Physical Exam CONSTITUTIONAL Constitutional: Present well-developed, Present well-nourished HENT HENT: Present normocephalic, Present atraumatic, Present oropharynx clear/moist, Present nose normal HENT L/R: Present left ext ear normal, Present right ext ear normal EYES Eyes: Reports PERRL, Reports conjunctivae normal NECK Neck: Present ROM normal, Present supple PULMONARY Pulmonary: Present effort normal, Present breath sounds normal CARDIOVASCULAR Cardiovascular: Present regular rhythm, Present heart sounds normal, Present capillary refill normal, Present normal rate GASTROINTESTINAL Abdominal: Present soft, Present bowel sounds normal, Present tender (blq), P resent guarding GENITOURINARY Genitourinary: Present exam deferred SKIN Skin: Present warm, Present dry MUSCULOSKELETAL Musculoskeletal: Present ROM normal NEUROLOGICAL Neurological: Present alert, Present oriented x 3, Present no gross motor or sensory deficits PSYCHOLOGICAL Psychological: Present mood/affect normal, Present judgement normal Results Laboratory Lab results reviewed: Yes Laboratory comments cbc/bmp/lft/ua all normal Imaging Imaging results reviewed: Yes Impressions [place] [address] Patient Name: JACOB MARTINEZ MR #: [id number] : 1965 Age/Sex: 54/F Req #: [id number] Adm Physician: Ordered by: LYNN WRIGHT Report #: [id number] Location: [facility] Room/Bed: Procedure: [id number] HOPD/CT ABD/PEL WITH CONTRAST-HOPD Exam Date: 12/05/19 Exam Time: 1806 REPORT STATUS: Signed EXAM: CT Abdomen and Pelvis WITH contrast INDICATION: Abdominal pain. COMPARISON: None. TECHNIQUE: Abdomen and pelvis were scanned utilizing a multidetector helical scanner from the lung base to the pubic symphysis after administration of IV contrast. Coronal and sagittal reformations were obtained. Routine protocol was performed. Scan was performed when during portal venous phase. IV CONTRAST: 100 mL of Isovue 370 ORAL CONTRAST: None COMPLICATIONS: None RADIATION DOSE: Total DLP: 742 mGy*cm Estimated effective dose: (DLP x 0.015 x size factor) mSv CTDIvol has been reviewed. It is below the limits set by the Radiation Protocol Committee (RPC). Dose modulation, iterative reconstruction, and/or weight based adjustment of the mA/kV was utilized to reduce the radiation dose to as low as reasonably achievable. FINDINGS: LINES and TUBES: None. LOWER THORAX: Unremarkable HEPATOBILIARY: The liver is diffuse hypodense compared to the spleen, consistent with diffuse hepatic diffuse hepatic steatosis. No focal hepatic lesions. No biliary ductal dilation. GALLBLADDER: No radio-opaque stones or sludge. No wall thickening. SPLEEN: No splenomegaly. PANCREAS: No focal masses or ductal dilatation. ADRENALS: No adrenal nodules KIDNEYS/URETERS: Kidneys enhance symmetrically. No hydronephrosis. No cystic or solid mass lesions. No stones. GI TRACT: No abnormal distention, wall thickening, or evidence of bowel obstruction. Appendix is normal. PELVIC ORGANS/BLADDER: Unremarkable. LYMPH NODES: No lymphadenopathy. VESSELS: Unremarkable. PERITONEUM / RETROPERITONEUM: No free air or fluid. BONES: There are mild degenerative changes in the spine. There is small L5-S1 disc bulge without significant neuroforaminal or spinal canal narrowing. SOFT TISSUES: Unremarkable. IMPRESSION: 1. No acute abdominopelvic abnormality identified. 2. Small L5-S1 disc bulge without significant neuroforaminal or spinal canal narrowing. Signed by: Tina Young MD on 12/05/2019 7:11 PM Dictated By: TINA YOUNG MD 10 Transcribed By: MICHAEL on 12/05/191910 COPY TO: LYNN WRIGHT~ Critical Care Time Comments [place] VERIFYING SPECIALIST OVERDOSE RISK SCORE =210 Assessment & Plan Medical Decision Making MDM kidney stone, intra abdominal infection, herniated disc Assessment & Plan Final Impression: (1) Herniated lumbar intervertebral disc Depart Disposition: HOME, SELF-CARE Last Vital Signs Date Time Temp Pulse Resp B/P (MAP) Pulse Ox O2 Delivery O2 Flow Rate FiO2 12/05/19 16:38 98.4 63 16 176/96 100 Room Air Home Meds Active Scripts Tramadol Hcl (ULTRAM) 50 Mg Tablet, 50 MG PO Q4HR PRN for SEVERE PAIN (7-10), #30 TAB TAKE AFTER PREDNISONE AND FLEXERIL TO CONTROL PAIN IF NEED BE Prov:LYNN WRIGHT 12/05/19 Cyclobenzaprine Hcl (FLEXERIL) 5 Mg Tablet, 10 MG PO Q8H PRN for MUSCLE SPASMS, #30 TAB TAKE AFTER PREDNISONE TO CONTROL PAIN Prov:LYNN WRIGHT 12/05/19 Prednisone (PREDNISONE) 20 Mg Tab, 80 MG PO DAILY PRN for MODERATE PAIN (4-6), #20 TAB take all 4 20mg pills at once Prov:LYNN WRIGHT 12/05/19 Medications in the ED Iopamidol 74,000 mg STK-MED ONCE INJ ; Start 12/05/19 at 17:25; Stop 12/05/19 at 17:18; Status DC Sodium Chloride 50 ml @ ud STK-MED ONCE .ROUTE ; Start 12/05/19 at 17:25; Stop 12/05/19 at 17:18; Status DC Sodium Chloride 10 ml PRN PRN INJ IV SITE FLUSH Last administered on 12/05/19at 17:30; Admin Dose 10 ML; Start 12/05/19 at 17:15; Stop 01/04/20 at 17:14 Ondansetron HCl 4 mg NOW STAT IV Last administered on 12/05/19at 17:30; Admin Dose 4 MG; Start 12/05/19 at 17:15; Stop 12/05/19 at 17:30; Status DC Ketorolac Tromethamine 30 mg ONCE STAT IV Last administered on 12/05/19at 17:33; Admin Dose 30 MG; Start 12/05/19 at 17:15; Stop 12/05/19 at 17:30; Status DC LYNN WRIGHT Dec 05, 2019 18:27
[2019-12-05] MEDS ORDERED: SODIUM CHLORIDE 0.9% 1000ML 1,000 ML IV STA (19:04)
--- NOTE | 2019-12-05 19:14 | Diagnostic Imaging Report ---
EXAM: CT Abdomen and Pelvis WITH contrast INDICATION: Abdominal pain. COMPARISON: None. TECHNIQUE: Abdomen and pelvis were scanned utilizing a multidetector helical scanner from the lung base to the pubic symphysis after administration of IV contrast. Coronal and sagittal reformations were obtained. Routine protocol was performed. Scan was performed when during portal venous phase. IV CONTRAST: 100 mL of Isovue 370 ORAL CONTRAST: None COMPLICATIONS: None RADIATION DOSE: Total DLP: 742 mGy*cm Estimated effective dose: (DLP x 0.015 x size factor) mSv CTDIvol has been reviewed. It is below the limits set by the Radiation Protocol Committee (RPC). Dose modulation, iterative reconstruction, and/or weight based adjustment of the mA/kV was utilized to reduce the radiation dose to as low as reasonably achievable. FINDINGS: LINES and TUBES: None. LOWER THORAX: Unremarkable HEPATOBILIARY: The liver is diffuse hypodense compared to the spleen, consistent with diffuse hepatic diffuse hepatic steatosis. No focal hepatic lesions. No biliary ductal dilation. GALLBLADDER: No radio-opaque stones or sludge. No wall thickening. SPLEEN: No splenomegaly. PANCREAS: No focal masses or ductal dilatation. ADRENALS: No adrenal nodules KIDNEYS/URETERS: Kidneys enhance symmetrically. No hydronephrosis. No cystic or solid mass lesions. No stones. GI TRACT: No abnormal distention, wall thickening, or evidence of bowel obstruction. Appendix is normal. PELVIC ORGANS/BLADDER: Unremarkable. LYMPH NODES: No lymphadenopathy. VESSELS: Unremarkable. PERITONEUM / RETROPERITONEUM: No free air or fluid. BONES: There are mild degenerative changes in the spine. There is small L5-S1 disc bulge without significant neuroforaminal or spinal canal narrowing. SOFT TISSUES: Unremarkable. IMPRESSION: 1. No acute abdominopelvic abnormality identified. 2. Small L5-S1 disc bulge without significant neuroforaminal or spinal canal narrowing. Signed by: Luis Leslie MD on 12/05/2019 7:11 PM
[2019-12-05] MEDS ORDERED: ONDANSETRON HCL INJ 2MG/ML 2ML 2 MG/ML VIAL ONE (19:29)
[2019-12-05] MEDS ORDERED: METHYLPREDNISOLONE SOD SUCC 125 MG/2ML VIAL ONE (19:29)
[2019-12-05] MEDS ORDERED: SODIUM CHLORIDE 0.9% 1000ML 1,000 ML ONE (19:30)
[2019-12-05] MEDS ORDERED: MORPHINE SULFATE INJ 4 MG/ML INJ 1ML ONE (19:30)
[2019-12-05] MEDS ORDERED: METHYLPREDNISOLONE SOD SUCC 125 MG/2ML VIAL IV ONE (19:30)
[2019-12-05] MEDS ORDERED: MORPHINE SULFATE INJ 4 MG/ML INJ 1ML IV ONE (19:30)
[2019-12-05] MEDS ORDERED: PREDNISONE20 MG PO (19:35)
[2019-12-05] MEDS ORDERED: ULTRAM50 MG PO (19:35)
[2019-12-05] MEDS ORDERED: CYCLOBENZAPRINE5 MG PO (19:35)
== END 2019-12-05 20:48 | disposition home or self-care (01) ==
LOC: FSED 17:05
DX: M51.27 Other intervertebral disc displacement, lumbosacral region (principal); R10.30 Lower abdominal pain, unspecified; R11.0 Nausea; M25.561 Pain in right knee; M79.652 Pain in left thigh; M79.651 Pain in right thigh; I10 Essential (primary) hypertension
CPT/HCPCS: 74177; 81003; 99284; J1885; J2270; J2405; J2930; J7030; Q9967